=== PATIENT | male | born 2000 | race African-American/Black ===

== ENCOUNTER 2021-05-20 15:56 | Emergency (ER) | payer OTHER ==
[~2021-05-20] VITALS: Ht 182.9 cm; Wt 77.1 kg
[2021-05-20 16:46] LABS: ABSOLUTE NEUTROPHILS 2.8 thou/uL (1.4-8.2); BASOPHILS 0.4 % (0.0-2.0); EOSINOPHILS 0.8 % (0.0-3.0); HEMATOCRIT 47.2 % (42.0-52.0); HEMOGLOBIN 15.5 gm/dL (14.0-18.0); LYMPHOCYTES 36.6 % (24.0-44.0); MCHC 32.8 g/dL (28.0-37.0); MCV 85.4 fL (80.0-100.0); MONOCYTES 7.1 % (1.0-8.0); PLATELET COUNT 233 thou/uL (150-400); POLYS 55.1 % (36.0-66.0); RBC 5.53 mil/uL (4.50-6.00); RDW 14.1 % (10.5-14.5)
[2021-05-20 16:51] LABS: CALCIUM 9.8 mg/dL (8.5-10.1); CREATININE 1.1 mg/dL (0.7-1.3); POTASSIUM 4.4 mmol/L (3.5-5.1)
[2021-05-20 17:01] LABS: ALBUMIN 4.7 g/dL (3.4-5.0); TOTAL BILIRUBIN 0.6 mg/dL (0.2-1.0); TOTAL PROTEIN 7.7 g/dL (6.4-8.2)
--- NOTE | 2021-05-20 17:26 | EKG ---
[address] [address] ELECTROCARDIOGRAM REPORT Name: MARQUISE NITIN Room #: [facility] DANIA Ramos#: [id number] Admission: 05/20/21 Attend Phys: Discharge: Date of : 00 Report #: [id number] [facility] ED Test Date: 2021-05-20 Test Time: 16:04:28 Pat Name: MARQUISE TAVERAS Department: Room: Gender: Patron Attendant: KATHIE : 2000 Requested By: Justine Ko Order Number: [id number] MD: Corwin Gurrola Measurements Intervals [place] Rate: 55 P: 61 ND: 138 QRS: 60 QRSD: 80 T: 26 QT: 409 QTc: 392 Interpretive Statements Sinus bradycardia Otherwise normal tracing No previous ECG available for comparison Electronically Signed On 05-20-2021 17:26:45 DEPENDENCY DIRECTOR by Corwin Gurrola [email or web address] <ELECTRONICALLY SIGNED> By: Corwin Gurrola MD, [facility] 05/20/21 1726 1604 1604 Corwin Gurrola MD, FACC /EPI
[2021-05-20 17:39] VITALS: BP 135/87
== END 2021-05-20 17:39 | disposition home or self-care (01) ==
LOC: ER 15:56
PROVIDERS: Nurse Practitioner
DX: M54.6 Pain in thoracic spine (principal); J45.909 Unspecified asthma, uncomplicated